=== PATIENT | female | born 1990 | race Caucasian/White ===

== ENCOUNTER 2021-12-29 13:33 | Emergency (ER) | payer OTHER, SELFPAY ==
[2021-12-29 13:38] VITALS: BP 120/72; PULSE 90; RESP 14; TEMP 37.5; O2SAT 100
--- NOTE | 2021-12-29 14:11 | ED.DENTAL ---
HPI - Dental/Oral General Chief complaint: Dental/Oral Stated complaint: left jaw swollen Time Seen by Provider: 12/29/21 14:13 Source: patient Mode of arrival: ambulatory History of Present Illness HPI Narrative: 31-year-old female presented for complaint of left lower jaw swelling. Onset yesterday. She endorses a history of multiple dental abscesses and history of tooth decay, multiple extractions; wears partial plate upper and lower. States she has not followed up with dentist in several months due to insurance change. She rinses with warm salt water daily and has been taking Tylenol. She states she is 7 weeks . allergy to PCN. Complaint: tooth pain Teeth map: 1. Mild swelling redness and tenderness with palpation Related Data Home Medications Medication Instructions Recorded Confirmed vit no.[id number] 1 tablet PO DAILY 12/29/21 12/29/21 [Alive ] Allergies Allergy/AdvReac Type Severity Reaction Status Date / Time Penicillins Allergy Unknown Swelling Verified 12/29/21 13:51 and Rash Review of Systems Review of Systems: CONSTITUTIONAL: Denies body aches, fever, chills, or sweats. ENT: Denies rhinorrhea, congestion, sore throat, or otalgia. Reports dental pain CARDIOVASCULAR: Denies chest pain, palpitations, or edema. RESPIRATORY: Denies cough or dyspnea. SKIN: Denies rash, itching, or wounds. MUSCULOSKELETAL: Denies myalgia. NEUROLOGIC: Denies headache, numbness, tingling, or weakness. PMFSH Comments At time of signature, I have reviewed and agree with nursing past medical, surgical, social and family history unless otherwise noted. Please see nursing chart for further information. There is no relevant family history pertinent to the presenting complaint Exam Narrative: GENERAL: Well-appearing, well-nourished, and in no acute distress. HEAD: Normocephalic, atraumatic. EYES: EOMI. No redness or drainage. Conjunctivae normal. ENT: Mucous membranes pink and moist. TMs normal bilaterally. Throat normal. Uvula midline. Left lower jaw swelling, tender to palpation NECK: Normal AROM. Supple. No lymphadenopathy. CHEST: No respiratory distress. Clear to auscultation. HEART: Regular rate and rhythm. No murmur appreciated. Normal peripheral pulses. ABDOMEN: Soft, nontender, nondistended, normal active bowel sounds. SKIN: Warm, dry, no rash. Capillary refill normal. Normal skin turgor. NEURO: No focal deficits. Alert and oriented x3. Gait steady. Course Course Emergency Course: Patient is aware of diagnosis, understands and agrees to treatment plan. Anticipatory guidance given. Patient agrees to follow-up as directed and is aware of reasons to seek care at the emergency department. Portions of this record may have been created with voice recognition software Level of Care: Express Care Visit Vital Signs Vital signs: Vital Signs Temperature 99.5 F 12/29/21 13:38 Pulse Rate 90 12/29/21 13:38 Respiratory Rate 14 12/29/21 13:38 Blood Pressure 120/72 12/29/21 13:38 Pulse Oximetry 100 12/29/21 13:38 Temperature 99.5 F 12/29/21 13:38 Pulse Rate 90 12/29/21 13:38 Respiratory Rate 14 12/29/21 13:38 Blood Pressure 120/72 12/29/21 13:38 Pulse Oximetry 100 12/29/21 13:38 MDM - Dental/Oral MDM Narrative Medical decision making narrative: Patients pain and complaint coupled with physical findings are consistant with dentalgia. There are no focal signs of space occupying lesions that are compromising to the airway; no dysphagia, odynophagia, dysphonia, or dyspnea. No uvular deviation or soft palate edema. Patient is non-toxic appearing. The floor of the mouth is soft with no signs of Sterling's Angina; no induration below mandible, no neck pain. Patient is without trismus or drooling and able to swallow secretions. Patient is felt appropriate for discharge home with dental follow up. Discharge Plan Discharge Clinical Impression:
== END 2021-12-29 14:38 | disposition home or self-care (01) ==
PROVIDERS: Emergency Provider Nurse Practitioner Family
DX: K04.7 Periapical abscess without sinus (principal)
CPT/HCPCS: 99213; G0463